=== PATIENT | male | born 1945 | race Caucasian/White ===

== ENCOUNTER 2018-02-08 00:07 | Emergency (ER) | payer OTHER ==
[2018-02-08] MEDS ORDERED: NA CHLORIDE 0.9% 1,000 ML ONE (01:23)
[2018-02-08 01:46] LABS: Absolute Monocytes 0.5 K/uL (0.1-1.3); Absolute Neutrophil 4.6 K/uL (1.8-8.0); Basophils % 0.6 % (0-1.3); Eosinophils % 1.7 % (0-4.4); Hematocrit 38.2 % (39.6-49.0); Lymphocytes % 27.7 % (15.3-44.8); MCH 31.2 pg (27.0-35.0); MCV 92.8 fL (80-100); MPV 7.8 fL (7.6-11.3); Monocytes % 7.1 % (3.3-12.3); RBC Red Blood Cell Count 4.11 M/uL (4.33-5.43)
[2018-02-08 02:02] LABS: Bicarbonate 27 mEq/L (21-31); Glucose Level 106 mg/dL (65-120); Potassium 3.9 mEq/L (3.6-5.0); Sodium Level 136 mEq/L (135-145)
[2018-02-08 02:03] LABS: BUN Blood Urea Nitrogen 16 mg/dL (6-20)
--- NOTE | 2018-02-08 02:36 | ER ---
Nurse's Notes [facility] Name: Francesco Gallegos Jr Age: 73 yrs Sex: Male : 1945 Arrival Date: 02/08/2018 Time: 00:14 Bed 18 Private MD: Diagnosis: Syncope and collapse Presentation: 02/08 00:14 Presenting complaint: EMS states: pt was found by daughter in restroom with positive ak1 LOC s/p fall. pt alert and awake in ER 18 answering questions appropriately. pt with slurred speech which daughter stated is normal for pt. pt daughter stated pt hit his head and had an unsteady gait. EMS reported FSBG 106. Transition of care: patient was not received from another setting of care. Onset of symptoms was February 08, 2018. Initial Sepsis Screen: Does the patient meet any 2 criteria? No. Patient's initial sepsis screen is negative. Does the patient have a suspected source of infection? No. Patient's initial sepsis screen is negative. Care prior to arrival: None. 00:14 Method Of Arrival: EMS: [facility] ak1 00:14 Acuity: EMILIANO 3 ak1 Triage Assessment: 00:20 General: Appears in no apparent distress. Behavior is calm, cooperative. Pain: Denies ak1 pain. EENT: No signs and/or symptoms were reported regarding the EENT system. Neuro: Level of Consciousness is awake, alert, obeys commands, Oriented to person, place, time, situation, Choir Teacher are equal bilaterally Moves all extremities. Speech is slurred, pt speech is slurred, WNL for pt per daughter at bedside. Facial symmetry appears normal. Cardiovascular: No deficits noted. Respiratory: No deficits noted. GI: No signs and/or symptoms were reported involving the gastrointestinal system. : No signs and/or symptoms were reported regarding the genitourinary system. Derm: No signs and/or symptoms reported regarding the dermatologic system. Musculoskeletal: No signs and/or symptoms reported regarding the musculoskeletal system. Historical: - Allergies: 00:20 NKDA; ak1 - Home Meds: 00:20 carbidopa-levodopa 25-100 mg oral TbDL [Active]; Lumigan ophthalmic ophthalmic ak1 [Active]; Combigan 0.2-0.5 % ophthalmic drop 1 drop every 12 hours [Active]; tamsulosin 0.4 mg oral cp24 1 cap once daily [Active]; Xanax 0.5 mg Oral tab 1.5 tab nightly [Active]; ropinirole 3 mg oral tab 2 tabs [Active]; - PMHx: 00:20 Parkinsons; Cataracts; Glaucoma; ak1 - PSHx: 00:20 rotator cuff; deep brain stimulator; ak1 - Immunization history:: Adult Immunizations unknown. - Social history:: Smoking status: Patient/guardian denies using tobacco. Screenin:21 Abuse screen: Denies threats or abuse. Denies injuries from another. Nutritional ak1 screening: No deficits noted. Tuberculosis screening: No symptoms or risk factors identified. Fall Risk Gait- Weak (10 pts.). Assessment: 00:22 Reassessment: Patient appears in no apparent distress at this time. No changes from ak1 previously documented assessment. Patient and/or family updated on plan of care and expected duration. Pain level reassessed. Patient is alert, oriented x 3, equal unlabored respirations, skin warm/dry/pink. see triage assessment. 01:02 Reassessment: Patient appears in no apparent distress at this time. Patient is alert, ak1 oriented x 3, equal unlabored respirations, skin warm/dry/pink. pt returned from CT scan. pt continues to crack jokes and smile. pt awake and alert. 02:48 Reassessment: Patient appears in no apparent distress at this time. No changes from ak1 previously documented assessment. Patient and/or family updated on plan of care and expected duration. Pain level reassessed. Patient is alert, oriented x 3, equal unlabored respirations, skin warm/dry/pink. pt ambulated with little assistance to wheelchair outside of the room. ERP notified of pt ability to ambulate. Vital Signs: 00:20 BP 109 / 64; Pulse 63; Resp 16; Temp 97.4(O); Pulse Ox 99% on R/A; Weight 68.04 kg (R); ak1 Height 5 ft. 4 in. (162.56 cm) (R); Pain 0/10; 01:02 BP 97 / 66; Pulse 62; Resp 16; Pulse Ox 100% on R/A; Pain 0/10; ak1 01:54 BP 105 / 67; Pulse 64; Resp 16; Temp 97.9; Pulse Ox 100% on R/A; Pain 0/10; ak1 00:20 Body Mass Index 25.75 (68.04 kg, 162.56 cm) ak1 ED Course: 00:14 Patient arrived in ED. ak1 00:16 Triage completed. ak1 00:20 Arm band placed on Patient placed in an exam room, on a stretcher, on pulse oximetry, ak1 Patient notified of wait time. 00:21 Patient has correct armband on for positive identification. Bed in low position. Call ak1 light in reach. Side rails up X 1. Adult w/ patient. Pulse ox on. NIBP on. 00:24 Daryl Rice MD is Attending Physician. 00:45 CT Head C Spine In Process Unspecified. EDMS 01:01 Liza Rodriguez RN is Primary Nurse. ak1 01:48 Initial lab(s) drawn, by me, sent to lab. EKG done, by ED staff, reviewed by Daryl Rice MD. Inserted saline lock: 20 gauge in left forearm, using aseptic technique. Blood collected. 01:49 Assisted with urinal. ak1 01:54 No provider procedures requiring assistance completed. ak1 02:30 Assisted with urinal. ak1 02:48 IV discontinued, intact, bleeding controlled, No redness/swelling at site. Pressure ak1 dressing applied. Administered Medications: 01:48 Drug: NS 0.9% 1000 ml Route: IV; Rate: 1 bolus; Site: left forearm; ak1 02:30 Follow up: IV Status: Completed infusion ak1 Outcome: 02:35 Discharge ordered by . 02:47 Discharged to home via wheelchair, with family. ak1 02:47 Condition: good 02:47 Discharge instructions given to patient, family, Instructed on discharge instructions, follow up and referral plans. Demonstrated understanding of instructions, follow-up care. 02:49 Patient left the ED. ak1 Signatures: Dispatcher [employer] EDME Liza Rodriguez, SAVANNAH RN Daryl Perez MD MD
--- NOTE | 2018-02-08 02:36 | EDPHYS ---
Physician Documentation [facility] Name: Francesco Gallegos Jr Age: 73 yrs Sex: Male : 1945 Arrival Date: 02/08/2018 Time: 00:14 Bed 18 Private MD: ED Physician Daryl Rice HPI: 02/08 02:29 This 73 yrs old Male presents to ER via EMS with unknown complaint. gs 02:29 The patient has experienced syncope, became unresponsive. Onset: The symptoms/episode gs began/occurred acutely, just prior to arrival. Duration: This was a single episode. Context: the episode(s) was witnessed, by family, occurred at home, occurred while the patient was standing, walking. Associated injury: Head/face: left side of the back of head. Associated signs and symptoms: Pertinent negatives: agitation, ataxia. Current symptoms: Currently, the patient is not experiencing any symptoms, the patient feels back to baseline. The patient has experienced a previous episode. Historical: - Allergies: 00:20 NKDA; ak1 - Home Meds: 00:20 carbidopa-levodopa 25-100 mg oral TbDL [Active]; Lumigan ophthalmic ophthalmic ak1 [Active]; Combigan 0.2-0.5 % ophthalmic drop 1 drop every 12 hours [Active]; tamsulosin 0.4 mg oral cp24 1 cap once daily [Active]; Xanax 0.5 mg Oral tab 1.5 tab nightly [Active]; ropinirole 3 mg oral tab 2 tabs [Active]; - PMHx: 00:20 Parkinsons; Cataracts; Glaucoma; ak1 - PSHx: 00:20 rotator cuff; deep brain stimulator; ak1 - Immunization history:: Adult Immunizations unknown. - Social history:: Smoking status: Patient/guardian denies using tobacco. ROS: 02:29 All other systems are negative. gs Exam: 02:29 Eyes: Pupils equal round and reactive to light, extra-ocular motions intact. Lids and gs lashes normal. Conjunctiva and sclera are non-icteric and not injected. Cornea within normal limits. Periorbital areas with no swelling, redness, or edema. ENT: Nares patent. No nasal discharge, no septal abnormalities noted. Tympanic membranes are normal and external auditory canals are clear. Oropharynx with no redness, swelling, or masses, exudates, or evidence of obstruction, uvula midline. Mucous membranes moist. Neck: Trachea midline, no thyromegaly or masses palpated, and no cervical lymphadenopathy. Supple, full range of motion without nuchal rigidity, or vertebral point tenderness. No Meningismus. Chest/axilla: Normal chest wall appearance and motion. Nontender with no deformity. No lesions are appreciated. Cardiovascular: Regular rate and rhythm with a normal S1 and S2. No gallops, murmurs, or rubs. Normal PMI, no JVD. No pulse deficits. Respiratory: Lungs have equal breath sounds bilaterally, clear to auscultation and percussion. No rales, rhonchi or wheezes noted. No increased work of breathing, no retractions or nasal flaring. Abdomen/GI: Soft, non-tender, with normal bowel sounds. No distension or tympany. No guarding or rebound. No evidence of tenderness throughout. Back: No spinal tenderness. No costovertebral tenderness. Full range of motion. Skin: Warm, dry with normal turgor. Normal color with no rashes, no lesions, and no evidence of cellulitis. MS/ Extremity: Pulses equal, no cyanosis. Neurovascular intact. Full, normal range of motion. 02:29 Constitutional: The patient appears alert, awake. 02:29 Head/face: Noted is abrasion(s), that are mild. 02:29 Musculoskeletal/extremity: Extremities: all appear grossly normal, with no appreciated pain with palpation. 02:29 Neuro: Orientation: to person, place \T\ time. Cranial nerves: CN II- XII are normal as tested, Motor: moves all fours, Sensation: no obvious gross deficits. 02:29 ECG was reviewed by the Attending Physician. Vital Signs: 00:20 BP 109 / 64; Pulse 63; Resp 16; Temp 97.4(O); Pulse Ox 99% on R/A; Weight 68.04 kg (R); ak1 Height 5 ft. 4 in. (162.56 cm) (R); Pain 0/10; 01:02 BP 97 / 66; Pulse 62; Resp 16; Pulse Ox 100% on R/A; Pain 0/10; ak1 01:54 BP 105 / 67; Pulse 64; Resp 16; Temp 97.9; Pulse Ox 100% on R/A; Pain 0/10; ak1 00:20 Body Mass Index 25.75 (68.04 kg, 162.56 cm) ak1 MDM: 00:45 Patient medically screened. 02:29 Differential Diagnosis: cardiac arrhythmia, idiopathic syncope, vasovagal episode. Data gs reviewed: vital signs, nurses notes. Response to treatment: the patient's symptoms have markedly improved after treatment, the patient's condition has returned to base line, and as a result, I will discharge patient. 02/08 01:20 Order name: CBC with Diff; Complete Time: 02:06 02/08 01:20 Order name: Basic Metabolic Panel; Complete Time: 02:06 02/08 00:25 Order name: CT Head C Spine bb 02/08 01:20 Order name: EKG; Complete Time: 01:21 02/08 01:20 Order name: EKG - Nurse/Tech; Complete Time: 01:48 EC:29 Rate is 61 beats/min. Rhythm is regular. QRS interval is normal. T waves are Normal. No gs ST changes noted. Clinical impression: Normal ECG. Interpreted by me. Administered Medications: 01:48 Drug: NS 0.9% 1000 ml Route: IV; Rate: 1 bolus; Site: left forearm; ak1 02:30 Follow up: IV Status: Completed infusion ak1 Disposition: 02/08/18 02:35 Discharged to Home. Impression: Syncope and collapse. - Condition is Stable. - Discharge Instructions: Near-Syncope, Syncope. - Medication Reconciliation Form, Thank You Letter, Antibiotic Education, Prescription Opioid Use form. - Follow up: Private Physician; When: 2 - 3 days; Reason: Re-evaluation by your physician. Signatures: Dispatcher [employer] Liza Masters RN RN ak1 Daryl Rice MD MD Corrections: (The following items were deleted from the chart) 02:49 02:35 02/08/2018 02:35 Discharged to Home. Impression: Syncope and collapse. Condition ak1 is Stable. Forms are Medication Reconciliation Form, Thank You Letter, Antibiotic Education, Prescription Opioid Use. Follow up: Private Physician; When: 2 - 3 days; Reason: Re-evaluation by your physician. gs
--- NOTE | 2018-02-08 07:07 | RAD REPORT ---
EXAM DESCRIPTION: CT - [id number] - 02/08/2018 2:05 am CLINICAL HISTORY: Fall, head and neck injury, headache, neck pain A preliminary written report was provided at the time of the study, and the report was reviewed prio r to final dictation. COMPARISON: None. TECHNIQUE: Axial 5 mm thick images of the head were obtained. Axial 2 mm thick images of the cervic al spine were obtained with sagittal and coronal reconstruction images generated and reviewed. All CT scans are performed using dose optimization technique as appropriate and may include automated exposure control or mA/KV adjustment according to patient size. FINDINGS: No intracranial hemorrhage, mass, edema or acute intracranial finding. No acute cortical based infarc tion. Mild atrophy and chronic ischemic changes are present. Bilateral deep neurostimulator wires are in place through frontal lobe approach. Arterial and physiologic calcifications are present. Ventric les are in proportion to volume loss. No extra-axial fluid collections. Mastoid air cells and paranas al sinuses are clear. No globe or orbit abnormality seen. Cervical body height and alignment are normal. Minimal disc space narrowing in the cervical spine. Po sterior endplate spurring and uncovertebral hypertrophy cause bilateral foraminal stenosis at C3-4 an d on the left at C4-5. Facet degenerative changes contribute as well. Similar process causes left for aminal stenosis at C5-6. Canal is borderline stenotic at this level. - No fracture or acute bony abno rmality. No pathologic bone process. No paraspinal mass or hematoma. IMPRESSION: No hemorrhage, edema or acute intracranial finding. Prominent cervical spine degenerative change as detailed. No fracture or acute finding.
--- NOTE | 2018-02-08 08:47 | EKG ---
Test Date: 2018-02-08 Test Time: 01:36:23 Practice Manager: NICOLASA MEASUREMENT RESULTS: Intervals: Rate: 61 [place]: 142 QRSD: 76 QT: 418 QTc: 420 [place]: P: 59 [place]: 142 QRS: 5 T: 33 INTERPRETIVE STATEMENTS: Normal sinus rhythm Normal ECG Compared to ECG 08/16/2017 11:47:17 No significant changes Electronically Signed On 02-08-18 08:46:43 CDT by Manolo Whipple
== END 2018-02-08 02:49 | disposition home or self-care (01) ==
LOC: ER 00:07
DX: R55 Syncope and collapse (principal); G20 Parkinson's disease
CPT/HCPCS: 36415; 70450; 72125; 80048; 85025; 93005; J7030; 96360; 99284